=== PATIENT | female | born 1975 | race Caucasian/White ===

== ENCOUNTER 2024-06-24 09:04 | Emergency (ER) | payer BC, SELFPAY ==
[2024-06-24 09:16] VITALS: BP 169/93
--- NOTE | 2024-06-24 10:26 | ED.GENMED ---
History of Present Illness
General
Chief Complaint: Skin Problem
Source: patient
Time Seen by Provider: 06/24/24 10:12
History of Present Illness
History of Present Illness:
49yo right hand dominant female with no significant past medical history presenting for evaluation of a cat bite. Patient was bitten by her cat yesterday morning in her right forearm. She woke up this morning with redness, swelling, and pain around
the bite site. She denies any fevers, chills, body aches. No paresthesias in the hand. Unknown last Tdap. The cat is indoor only and up to date on rabies vaccinations.
Past History
Past History
ED Past Medical History: None
Social History
Tobacco: Non-smoker
Personal:
Living: with family
Employment: Employed
Phy Exam
General Physical Exam
General Presentation: well appearing and no apparent distress
General age: appears stated age
General Skin: warm and dry
General Habitus: normal
Pulmonary Exam
Pulmonary Exam: no respiratory distress
Musculoskeletal Exam
Musculoskeletal Exam: full ROM
Skin Exam
Skin Exam: warm/dry, erythema and other (Puncture wounds noted to R dorsal forearm with surrounding erythema and warmth measuring about 5cm. No drainage, fluctuance, crepitus, or pain out of proportion. No bony tenderness of ulna or radius. ROM of
elbow and wrist intact. 2+ radial pulse. Sensation intact. )
Psychiatric Exam
Psychiatric Exam: normal mood/affect
Course
Orders/Labs/Results
Orders:
Orders
06/24/24 10:26
Amoxicillin 875 mg/Clav 125 mg [Augmentin 875 mg/125 mg] 1 tablet PO NOW STA
Tetanus/Diphth/Acelpertussis [Adacel] 0.5 ml IM .ONCE ONE
Vital Signs
Initial and Last Documented VS:
Initial Vital Signs
Temp Pulse Resp BP Pulse Ox
98.9 F 103 17 169/93 97
08/14/24 09:16 06/24/24 09:16 06/24/24 09:16 06/24/24 09:16 06/24/24 09:16
Last Documented Vital Signs
Temp Pulse Resp BP Pulse Ox
98.9 F 103 17 169/93 97
06/24/24 09:16 06/24/24 09:16 06/24/24 09:16 06/24/24 09:16 06/24/24 09:16
MDM/Problems Addressed
Differential Diagnosis Includes:
49yoF here for a cat bite yesterday morning. Woke up today with redness and swelling and came to the ED. She is well appearing with stable vitals. Puncture wounds noted on exam with surrounding cellulitis. No evidence of abscess, NSTI, or
lymphangitis. No bony tenderness. RUE is neurovascularly intact.
No indication for labs or imaging at this time. Area of erythema was delineated with a skin marker. She was started on a course of Augmentin and Tdap updated. Advised f/u with PCP in 2-3 days for reassessment. ED return precautions discussed.
Patient expressed understanding and is agreeable to plan. Patient discharged in stable condition.
*Critical Care Note
Total Time (30-74mins, 75-104mins- exclusive of procedures): Not Applicable
ED Attending Note
-
Portions of this chart may have been created with voice recognition software.� Occasional wrong word or��sound alike� substitutions may have occurred due to the inherent limitations of voice recognition software.
Discharge Plan
Departure
Patient Disposition: Home (Routine Discharge)
Date of Disposition: 06/24/24
Time of Disposition: 10:27
Patient with high blood pressure during this ER visit?: Yes
Discharge Problem:
Cat bite of right forearm with infection
Instructions: Animal Bites ED
Prescriptions:
New
amoxicillin-pot clavulanate 875-125 mg tablet
1 tab PO BID Qty: 13 0RF
No Action
Vitamins 1 TAB tablet
Referrals:
NONE,* [Family Provider] -
Activity Restrictions/Additional Instructions:
Take antibiotics as prescribed.
Please follow-up with your family doctor in 2-3 days. Return to the ER with any worsening symptoms, spreading redness, fevers.
Interventions
Interventions:
*Risk Screen - Suicide Last Done: 06/24/24 10:22
*General Assessment Last Done: 06/24/24 10:22
*Neglect/Abuse Screening Last Done: 06/24/24 10:22
ED- Fall Risk Assessment Last Done: 06/24/24 10:22
*ED COVID-19 Vaccine History Last Done: 06/24/24 10:22
Discharge Date and Time
Print Language: BRAZILIAN
[2024-06-24] MEDS: ADACEL 0.5 ML IM (10:34)
[2024-06-24] MEDS: AUGMENTIN 875 MG/125 MG 1 TABLET PO (10:34)
== END 2024-06-24 10:47 | disposition home or self-care (01) ==
LOC: EMR 09:04
PROVIDERS: EMERGENCY PHYSICIAN Emergency Medicine
DX: S51.831A Puncture wound without foreign body of right forearm, initial encounter (principal); W55.01XA Bitten by cat, initial encounter; Z23 Encounter for immunization
CPT/HCPCS: 99282; 90471; 90715

== ENCOUNTER 2025-04-01 14:07 | Emergency (ER) | payer BC, SELFPAY ==
[2025-04-01 14:08] VITALS: BP 139/91
[2025-04-01 14:33] VITALS: BMI 39.7
--- NOTE | 2025-04-01 15:19 | ED.GENMED ---
History of Present Illness
General
Chief Complaint: Musculo-Skeletal Complaint
Time Seen by Provider: 04/01/25 14:43
History of Present Illness
History of Present Illness:
49-year-old female presents the emergency department for evaluation of left ankle pain after stepping in a pothole. Prior history of an avulsion fracture of the lateral malleolus. She is able to bear weight with significant discomfort.
Past History
Past History
ED Past Medical History: None
Social History
Tobacco: Non-smoker
Personal:
Living: with family
Employment: Employed
Review of Systems
Review of Systems
Allergies reviewed?: Yes
All Other Systems: ROS reviewed and negative except as documented in HPI and ROS
Phy Exam
Physical Exam
Physical Exam:
GEN: Well appearing, NAD, WDWN
HEENT: Oral mucosa moist, no scleral icterus
Cardiac: Regular rate
Lung: No respiratory distress, no tachypnea
MSK: No gross deformity or injuries. Minor swelling to the left lateral malleolus, range of motion of the ankle is normal
Skin: Good color, no pallor or jaundice, no rashes
Neuro: AO x3, moves all extremities freely
Psych: Calm, cooperative
Course
Orders/Labs/Results
Orders:
Orders
04/01/25 14:11
CR Ankle - Left Min 3 Views Urgent
Comment:
Reason For Exam: Injury
Vital Signs
Initial and Last Documented VS:
Initial Vital Signs
Temp Pulse Resp BP Pulse Ox
98.3 F 108 16 139/91 100
04/01/25 14:08 04/01/25 14:08 04/01/25 14:08 04/01/25 14:08 04/01/25 14:08
Last Documented Vital Signs
Temp Pulse Resp BP Pulse Ox
98.3 F 108 16 139/91 100
04/01/25 14:08 04/01/25 14:08 04/01/25 14:08 04/01/25 14:08 04/01/25 14:08
MDM/Problems Addressed
MDM/Problems Addressed:
Imaging suggestive of acute on chronic fracture, patient already has orthopedic equipment at home from previous ankle injury, recommend use of Ortho boot for walking purposes until orthopedic follow-up
*Critical Care Note
Total Time (30-74mins, 75-104mins- exclusive of procedures): Not Applicable
ED Attending Note
-
Portions of this chart may have been created with voice recognition software.� Occasional wrong word or��sound alike� substitutions may have occurred due to the inherent limitations of voice recognition software.
Discharge Plan
Departure
Patient Disposition: Home (Routine Discharge)
Date of Disposition: 04/01/25
Time of Disposition: 15:22
Patient with high blood pressure during this ER visit?: No
Discharge Problem:
Avulsion fracture of left ankle
Instructions: Ankle Fracture (DC)
Prescriptions:
No Action
Vitamins 1 TAB tablet
amoxicillin-pot clavulanate 875-125 mg tablet
1 tab PO BID Qty: 13 0RF
Referrals:
eHtal Wilcox I., DO [Active] -
Interventions
Interventions:
*Risk Screen - Suicide Last Done: 04/01/25 14:33
*General Assessment Last Done: 04/01/25 14:33
*Neglect/Abuse Screening Last Done: 04/01/25 14:33
*ED COVID-19 Vaccine History Last Done: 04/01/25 14:33
*Nursing Disposition Last Done: 04/01/25 15:33
ED-Musculoskeletal Assessment Last Done: 04/01/25 14:33
Discharge Date and Time
Discharge Date/Time: 04/01/25 15:35
Print Language: UGANDAN
== END 2025-04-01 15:35 | disposition home or self-care (01) ==
LOC: EMR 14:07
PROVIDERS: EMERGENCY PHYSICIAN Student in an Organized Health Care Education/Training Program
DX: S82.62XG Displaced fracture of lateral malleolus of left fibula, subsequent encounter for closed fracture with delayed healing (principal); X50.1XXD Overexertion from prolonged static or awkward postures, subsequent encounter
CPT/HCPCS: 99283; 73610

== ENCOUNTER → 2025-11-08 06:35 | Outpatient (REF) | payer OTHER, SELFPAY | LOC: RAD 06:35 | DX: T14.8XXA Other injury of unspecified body region, initial encounter (principal); R22.9 Localized swelling, mass and lump, unspecified; S80.12XA Contusion of left lower leg, initial encounter | CPT/HCPCS: 76882; 93971 ==